=== PATIENT | female | born 1990 | race Asian ===

== ENCOUNTER 2018-10-29 17:26 | Emergency (ER) | payer OTHER ==
--- NOTE | 2018-10-29 18:24 | XRAY Report ---
Reason: smashed 3rd,4th,5th digit Procedure Date: 10/29/2018 Accession Number: [id number] / [id number] Procedure: XR - Finger(s) LT CPT Code: FULL RESULT: EXAM: LEFT THIRD THROUGH FIFTH DIGIT RADIOGRAPHY EXAM DATE: 10/29/2018 05:54 PM. CLINICAL HISTORY: Smashed third, fourth, fifth digit. COMPARISON: None. TECHNIQUE: 3 views. FINDINGS: Bones: Mildly displaced fracture involving the tuft of the distal fourth phalanx. No other fracture or bone lesion seen. Joints: Normal. No subluxations. Soft Tissues: Normal. No soft tissue swelling. IMPRESSION: Mildly displaced fourth digit tuft fracture. RADIA
--- NOTE | 2018-10-29 19:19 | ED Physician Documentation ---
PD HPI UPPER EXT INJURY - Stated complaint Stated Complaint: LT HAND LAC - Chief complaint Chief Complaint: Trauma Ext - History obtained from History obtained from: Patient - History of Present Illness Location: Left, Finger Type of injury: Crush (fingers caught in car door and she pulled it as well. Abrasions, peeled partial thickness skin on index, middle and little fingers, with laceration of the ring finger tip from DIP distally, with flap on palmar side. It has torn/irregular edges, some dirt in wound, as she fell to ground after the injury and hand got into dirt.) Where injury occurred: No: Home (they are visiting from [facility], returning this evening.) Timing - onset: How many minutes ago (30), Today Timing - details: Abrupt onset Associated symptoms: Numbness (poor sensation at tip of ring finger). No: Weakness Similar symptoms before: Has not had sx before Review of Systems Neurologic: denies: Altered mental status, Head injury PD PAST MEDICAL HISTORY - Past Medical History Cardiovascular: None Respiratory: None Neuro: None Endocrine/Autoimmune: None - Present Medications Home Medications: Ambulatory Orders Medication Instructions Recorded Confirmed Cephalexin [Keflex] 500 mg PO Q6H #20 capsule 10/29/18 Hydrocodone/Acetaminophen [[place] 1 each PO Q6H PRN #15 tablet 10/29/18 5-325 Tablet] - Allergies Allergies/Adverse Reactions: Allergies Allergy/AdvReac Type Severity Reaction Status Date / Time No Known Drug Allergies Allergy Verified 10/29/18 17:34 PD ED PE NORMAL - Vitals Vital signs reviewed: Yes - General General: Alert and oriented X 3, Well developed/nourished, Other (appears uncomfortable due to hand injury) - Derm Derm: Normal color, Warm and dry - Extremities Extremities: Other (Left hand with partial thickness avulsions index, middle, little fingers with skin trimmed off before cleaning. Some superficial dirt seem on wounds. The main injury of ring finger with flap lac of palmar fat pad distal phalanx, starting at DIP joint. Exposes the flexor tendon insertion site, but appears intact. Weak flexion at that joint and hard to assess with the flap of tissue. The nail and nychial fold are intact, but the underside of the nailbed is disrupted with the flap lac. There is dirt noted in the wound, and this is irrigated until cleared once numbed. Decreaseed sensation of flap on ulnar side. Still with pink color of the tissue. ) Results - Vitals Vitals: Vital Signs - 24 hr 10/29/18 10/29/18 17:33 21:25 Temperature 36.8 C 36.1 C L Heart Rate 110 H 81 Respiratory 18 12 Rate Blood Pressure 136/78 H 113/74 O2 Saturation 100 100 Oxygen O2 Source Room air - Rads (name of study) fingers Radiology: Prelim report reviewed (distal tuft fracture of ring finger), See rad report Procedures - Laceration (location) left ring finger Length in cm: 2 Wound type: Flap, Into subcut fat (the flap is of the palmar fat pad distal phalanx, with some torn edges and dirt in wound that was irrigated until clean.), Contaminated. No: Heavily Contaminated Tendon involvement: Tendon Injury (the flexor tendon insertion site is unroofed but seems attached. She can flex the tip of the finger, but is weak and the flap lac of the fat pad unroofing it also impairs the exam of feeling the flexion. Once sutures into shape, I can feel some force of flexion at the tip of the finger at DIP joint.) Anesthesia: Lidocaine 2% (digital block) Wound Preparation: Irrigated copiously NS, Debrided moderately, Wound explored, To the base, Wound edges modified Deep layer closure: Vicryl, size #-0 - enter number (5), # sutures - enter number (3) Skin layer closure: Nylon, Interrupted, Running, Size #-0 - enter number (4), Sutures - enter # (many, to close the flap and approximate/reshape the nailbed around the still intact nail/nychium.) Other: Patient tolerated well, No complications. No: Neurovascular intact (sensation impaired at the tip, but has color and blushing with pressure.) PD MEDICAL DECISION MAKING - ED course Complexity details: reviewed results, considered differential, d/w patient, d/w family (stated and reinforced need for close follow up (2 days) with provider regarding infection/early wound healing, and then hand surgeon within few days or at most within week regardingfurther repair. They are from [facility] and family saying they would contact PMD for referral, but I restated to be sure to see even PMD in next 1-3 days. ) Departure - Departure Disposition: 01 Home, Self Care Clinical Impression: Open fracture of tuft of distal phalanx of finger Finger laceration Qualifiers: Encounter type: initial encounter Finger: middle finger Damage to nail status: with damage Foreign body presence: with foreign body Laterality: left Qualified Code(s): S61.323A - Laceration with foreign body of left middle finger with damage to nail, initial encounter Finger abrasion Qualifiers: Encounter type: initial encounter Qualified Code(s): S60.419A - Abrasion of unspecified finger, initial encounter Condition: Stable Record reviewed to determine appropriate education?: Yes Instructions: ED Laceration Amputation Finger Tip Open Tx, ED Fx Finger Open Prescriptions: Cephalexin [Keflex] 500 mg PO Q6H #20 capsule Hydrocodone/Acetaminophen [[place] 5-325 Tablet] 1 each PO Q6H PRN #15 tablet PRN Reason: Pain Comments: Splint for the finger to protect it. Change the dressings on the fingers twice daily. You can use the topical lidocaine as needed for discomfort. Add Tylenol or ibuprofen if needed for pain and hydrocodone if needed for worse pain. Cephalexin 4 times a day for the next 5 days to reduce the chance of infection. Clean the wounds twice daily with soap and water and apply some of the ointment. Follow-up with your primary care in the next day, call tomorrow to either make an appointment with him or have them refer you to a hand specialist, which would be better. Concerns in the short-term or wound infection and early healing. Subsequent concern is if the tendon attachment is still sturdy enough for proper flexion at the tip of the finger as the laceration heals. Discharge Date/Time: 10/29/18 21:57
[2018-10-29] MEDS ORDERED: LIDOCAINE OINTMENT 5% 35.44 GM TUBE TOP STA (19:38)
[2018-10-29] MEDS ORDERED: HYDROcod/ACETAM 5/325 MG TABLET PO STA (19:38)
[2018-10-29] MEDS ORDERED: LIDOCAINE 2% 10 ML MDV SUBQ STA (19:46)
[2018-10-29] MEDS ORDERED: HYDROcod/ACET 5/325 Prepack 4 PO STA (21:12)
[2018-10-29] MEDS ORDERED: cephALEXin 250 MG CAPSULE PO STA (21:12)
[2018-10-29 21:26] VITALS: BP 113/74
== END 2018-10-29 21:57 | disposition home or self-care (01) ==
LOC: ED 17:26
DX: S62.635B Displaced fracture of distal phalanx of left ring finger, initial encounter for open fracture (principal); S66.125A Laceration of flexor muscle, fascia and tendon of left ring finger at wrist and hand level, initial encounter; S61.323A Laceration with foreign body of left middle finger with damage to nail, initial encounter; S60.411A Abrasion of left index finger, initial encounter; S60.417A Abrasion of left little finger, initial encounter; V48.4XXA Person boarding or alighting a car injured in noncollision transport accident, initial encounter
CPT/HCPCS: 12041; 73140; 99283; A9270; 12001